=== PATIENT | female | born 1965 | race Caucasian/White ===

== ENCOUNTER → 2016-08-18 | Outpatient (CLI) | payer OTHER ==
--- NOTE | 2016-08-18 11:40 | MA ---
Screening Digital Mammogram With iCAD Analysis Clinical Indications: Routine screening. A maternal aunt was diagnosed with breast cancer in her 40s. Technique: Standard cephalocaudal projections are obtained. Digital breast tomosynthesis was performe d in the MLO projection with reconstruction at 1.0 mm slice thickness and composite MLO views reconst ructed. This examination is processed by the iCAD computer aided detection system. Comparison: June 2015, June, June 2012, July 2010. Breast density: Type B; Scattered fibroglandular densities. Findings: CAD was reviewed. No masses, suspicious calcifications or secondary signs of malignancy are seen. There has been no significant change in the appearance of either breast. Impression: Negative mammogram. BI-RADS 1. Recommendation: Routine mammographic screening in one year as long as [facility] Negative mammography should not preclude additional workup of a clinically suspicious finding. The patient's information is entered into a reminder system with a target due date for her next mammo gram.
== END ==
LOC: FIMAGING 08:14
DX: Z12.31 Encounter for screening mammogram for malignant neoplasm of breast (principal); Z80.3 Family history of malignant neoplasm of breast
CPT/HCPCS: G0202

== ENCOUNTER 2017-05-22 18:44 | Emergency (ER) | payer OTHER ==
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
[2017-05-22] MEDS ORDERED: OXYCODONE/APAP 5/325MG PREPACK#4 BTL TAKEHOME ONE (19:39)
[2017-05-22 19:54] VITALS: BP 113/66; PULSE 46; RESP 14; TEMP 97.7; O2SAT 94
== END 2017-05-22 19:54 | disposition home or self-care (01) ==
LOC: EDUNIT#
DX: S42.031A Displaced fracture of lateral end of right clavicle, initial encounter for closed fracture (principal); S09.90XA Unspecified injury of head, initial encounter; V19.9XXA Pedal cyclist (driver) (passenger) injured in unspecified traffic accident, initial encounter; Y92.69 Other specified industrial and construction area as the place of occurrence of the external cause
CPT/HCPCS: A4565

== ENCOUNTER → 2017-08-19 | Outpatient (CLI) | payer OTHER | LOC: FIMAGING 08:10 | PROVIDERS: ATTEND Internal Medicine | DX: Z12.31 Encounter for screening mammogram for malignant neoplasm of breast (principal) ==

== ENCOUNTER → 2018-12-01 | Outpatient (CLI) | payer OTHER | LOC: FIMAGING 08:09 | PROVIDERS: ATTEND Internal Medicine | DX: Z12.31 Encounter for screening mammogram for malignant neoplasm of breast (principal) ==

== ENCOUNTER 2018-12-21 08:45 | Observation (INO) | payer OTHER ==
[2018-12-21] MEDS ORDERED: ACETAMINOPHEN 500 MG TAB PO ONE (10:16)
[2018-12-21] MEDS ORDERED: GABAPENTIN 300 MG CAP PO ONE (10:16)
[2018-12-21] MEDS ORDERED: ceFAZolin 2 GM/DEXTROSE 100 ML IV ONE (10:16)
[2018-12-21] MEDS ORDERED: LR 1,000 ML IV ONE (10:17)
[2018-12-21] MEDS ORDERED: SURGIFLO MATRIX KIT WITH THROMBIN 8 ML TP ONE (10:21)
--- NOTE | 2018-12-21 10:25 | PDHPUP ---
History & Physical Update H&P update statement: This history and physical update is based on an assessment of the patient which was completed after admission or registration (within 24 hours), but prior to the surgery/procedure. H&P update: H&P reviewed & patient examined, no change in patient's condition since H&P completed
[2018-12-21] MEDS ORDERED: BACITRACIN 50,000 UNITS/10 ML SYR IRR ONE (10:35)
[2018-12-21] MEDS ORDERED: THROMBIN (BOVINE) 20,000 UNIT VIAL TP ONE (10:35)
[2018-12-21] MEDS ORDERED: CHLORHEXIDINE GLUC HIBICLENS 118 ML BTL TP ONE (10:35)
[2018-12-21] MEDS ORDERED: ROCURONIUM 50 MG/5 ML VIAL ONE (12:28)
[2018-12-21] MEDS ORDERED: PROPOFOL 200 MG/20 ML VIAL ONE (12:28)
[2018-12-21] MEDS ORDERED: LIDOCAINE 2% 5 ML SDV ONE (12:29)
[2018-12-21] MEDS ORDERED: MIDAZOLAM 2 MG/2 ML VIAL IVP ONE (12:59)
[2018-12-21] MEDS ORDERED: MIDAZOLAM 2 MG/2 ML VIAL ONE (12:59)
--- NOTE | 2018-12-21 12:59 | PDANEPAE ---
ANE History of Present Illness right arm radiculopathy ANE Past Medical History - Cardiovascular History Hx Hypertension: No Hx Arrhythmias: No Hx Chest Pain: No Hx Coronary Artery / Peripheral Vascular Disease: No Hx CHF / Valvular Disease: Yes Hx Palpitations: No Cardiovascular History Comment: VERY LOW RESTING HEART RATE. MITRAL VALVE PROLAPSE. HX PATENT FORAMEN OVALE W/ATRIAL SEPTAL ANEURYSM. PREOP VISIT SCHEDULED W/DR HILLIARD ON 12/13/18 - Pulmonary History Hx COPD: No Hx Asthma/Reactive Airway Disease: No Hx Recent Upper Respiratory Infection: No Hx Oxygen in Use at Home: No Hx Sleep Apnea: No Sleep Apnea Screening Result - Last Documented: Negative - Neurologic History Hx Cerebrovascular Accident: No Hx Seizures: No Hx Dementia: No Neurologic History Comment: MIGRAINES WHEN YOUNGER. IDIOPATHIC PARALYZED RIGHT VOCAL CORD - Endocrine History Hx Diabetes: No Hypothyroid: No Hyperthyroid: No Obesity: no - Renal History Hx Renal Disorders: No - Liver History Hx Hepatic Disorders: No - Neurological & Psychiatric Hx Hx Neurological and Psychiatric Disorders: No - Cancer History Hx Cancer: No - Congenital Disorder History Hx Congenital Disorders: No - GI History GERD: no Hx Gastrointestinal Disorders: No Gastrointestinal History Comment: COLONOSCOPY AT AGE 50 POLYP REMOVED. DIVERTICULA - Other Health History Other Health History: NEG - Chronic Pain History Chronic Pain: Yes (R SHOULDER TO SCAPULA & SPINE) - Surgical History Prior Surgeries: APPENDECTOMY. HYSTERECTOMY. CLAVICLE FX REPAIR. FATTY TUMOR BACK. SUBMUCOSAL FIBROID. PARTIAL VULVECTOMY- VAGINECTOMY PERINEAPLASTY. VULVAR LASER SURGERY. TONSILLECTOMY ANE Review of Systems Review of systems is: negative Review of Systems: - Exercise capacity Exercise capacity: >=4 METS METS (RN): 6 METS ANE Patient History - Allergies Allergies/Adverse Reactions: STREPTOCAINE Allergy (Unknown, Uncoded 12/09/18 13:03) Unknown - Home Medications Home medications: home medication list seen and reviewed Home Medications: NK [No Known Home Meds] 12/08/18 [Last Taken Unknown] - NPO status NPO Status: no food or drink >8 hours NPO Since - Liquids (Date): 12/21/18 NPO Since - Liquids (Time): 07:00 NPO Since - Solids (Date): 12/20/18 NPO Since - Solids (Time): 21:00 - Anes Hx Anes Hx: post operative nausea and vomiting - Smoking Hx Smoking Status: Never smoked - Family Anes Hx Family Hx Anesthesia Complications: NEG ANE Labs/Vital Signs - Vital Signs Vital Signs: reviewed preoperatively; see RN documention for details Blood Pressure: 154/94 Heart Rate: 64 Respiratory Rate: 12 O2 Sat (%): 98 Height: 167.64 cm Weight: 55.792 kg ANE Physical Exam - Airway Neck exam: FROM Mallampati Score: Class 2 Mouth exam: normal dental/mouth exam - Pulmonary Pulmonary: no respiratory distress, clear to auscultation - Cardiovascular Cardiovascular: regular rate and rhythym - ASA Status ASA Status: II ANE Anesthesia Plan Anesthesia Plan: general endotracheal anesthesia
[2018-12-21] MEDS ORDERED: fentaNYL 100 MCG/2 ML INJ ONE ×2 (13:12→14:45)
[2018-12-21] MEDS ORDERED: oxyCODONE IR 5 MG TAB PO PRN ×2 (13:15→13:58)
[2018-12-21] MEDS ORDERED: MAGNESIUM HYDROXIDE 30 ML UDCUP PO PRN (13:15)
[2018-12-21] MEDS ORDERED: POLYETHYLENE GLYCOL 3350 17 GM PKT PO PRN (13:15)
[2018-12-21] MEDS ORDERED: ONDANSETRON DISINTEGRATING 4 MG TAB PO PRN (13:15)
[2018-12-21] MEDS ORDERED: METHOCARBAMOL 750 MG TAB PO PRN (13:15)
[2018-12-21] MEDS ORDERED: BISACODYL 10 MG SUPP PR PRN (13:15)
[2018-12-21] MEDS ORDERED: diphenhydrAMINE 25 MG CAP PO PRN (13:15)
[2018-12-21] MEDS ORDERED: NS 1,000 ML IV SCH (13:15)
[2018-12-21] MEDS ORDERED: LACTULOSE 20 GM/30 ML UDCUP PO PRN (13:15)
[2018-12-21] MEDS ORDERED: ONDANSETRON 4 MG/2 ML VIAL IVP PRN ×2 (13:15→13:58)
[2018-12-21] MEDS ORDERED: PROPOFOL/EMULSION 500 MG/50 ML BOTTLE IV ONE (13:27)
[2018-12-21] MEDS ORDERED: DEXAMETHASONE 4 MG/ML VIAL IVP PRN (13:58)
[2018-12-21] MEDS ORDERED: PHENYLEPHRINE HCL 100 MCG/ML SYR IVP PRN (13:58)
[2018-12-21] MEDS ORDERED: NALOXONE HCL 0.4 MG/ML INJ IVP PRN (13:58)
[2018-12-21] MEDS ORDERED: ACETAMINOPHEN 500 MG TAB PO PRN (13:58)
[2018-12-21] MEDS ORDERED: LR 500 ML IV PRN (13:58)
[2018-12-21] MEDS ORDERED: HYDROCODONE/APAP 5/325 TAB PO PRN (13:58)
[2018-12-21] MEDS ORDERED: ALBUTEROL 3 ML DEYVIAL IH PRN (13:58)
[2018-12-21] MEDS ORDERED: HYDROmorphONE/DILAUDID 1 MG/ML INJ IVP PRN (13:58)
[2018-12-21] MEDS ORDERED: METOCLOPRAMIDE 10 MG/2 ML VIAL IVP PRN (13:58)
[2018-12-21] MEDS ORDERED: fentaNYL 100 MCG/2 ML INJ IVP PRN (13:58)
[2018-12-21] MEDS ORDERED: LABETALOL HCL 5 MG/ML 20 ML MDV IVP PRN (13:58)
[2018-12-21] MEDS ORDERED: PROMETHAZINE HCL 25 MG/ML INJ IVP PRN (13:58)
[2018-12-21] MEDS ORDERED: MEPERIDINE 25 MG/0.5 ML AMP IVP PRN (13:58)
[2018-12-21] MEDS ORDERED: DEXAMETHASONE 4 MG/ML VIAL ONE ×2 (14:20)
[2018-12-21] MEDS ORDERED: ONDANSETRON 4 MG/2 ML VIAL ONE (14:20)
[2018-12-21] MEDS ORDERED: METOCLOPRAMIDE 10 MG/2 ML VIAL ONE (14:20)
--- NOTE | 2018-12-21 14:33 | POSTOPPROG ---
Post Op Note Date of Operation: 12/21/18 Surgeon: Justin Sylvester Plumbing Inspector: Marisol Issa NP Anesthesiologist: Dr Godwin Anesthesia: GET(General Endotracheal) Pre-op Diagnosis: Cervical stenosis Procedure: ACDF C5-6 Inf/Abcess present in the surg proc area at time of surgery?: No Depth: Deep Incisional (Fascial) EBL: Minimal Total fluids administered: see anesthesia Complications: none Date of Surgery: 12/21/18 Post Op Day: 0 Assessment/Plan: Assessment: 53 yr old female s/p ACDF C5-6 Plan: -Admit ortho/neuro for obs -PT/OT/ST -Post op xrays -No collar needed Subjective: waking up in pacu Objective: waking up in pacu MAEx4 5/5 BUE Dressing CDI
[2018-12-21] MEDS ORDERED: METHOCARBAMOL 1,000 MG in NS 50 ML IVP ONE (14:42)
[2018-12-21] MEDS ORDERED: METHOCARBAMOL 750 MG TAB ONE (14:45)
--- NOTE | 2018-12-21 15:25 | GOP ---
[f rep st] OPERATIVE REPORT DATE OF OPERATION: 12/21/2018 SURGEON: Justin Sylvester MD ULTRASONIC SEAMING MACHINE OPERATOR: assistant attorney general, Marisol Issa NP ANESTHESIA: General. PREOPERATIVE DIAGNOSIS: 1. C5, C6 cervical spondylosis with right foraminal stenosis. 2. Right upper extremity radiculopathy with weakness. 3. Treatment refractory to nonoperative intervention. POSTOPERATIVE DIAGNOSIS: 1. C5, C6 cervical spondylosis with right foraminal stenosis. 2. Right upper extremity radiculopathy with weakness. 3. Treatment refractory to nonoperative intervention. PROCEDURE PERFORMED: 1. Anterior arthrodesis with approach to C5, C6. 2. C5-C6 diskectomy with bilateral foraminotomies, osteophytectomies, and interbody fusion using a 7 mm titanium coated PEEK cage filled with morselized autograft and allograft. 3. Anterior cervical fusion C5-C6 with a 17 mm Medtronic Zevo plate. 4. Use of intraoperative fluoroscopy, less than 1 hour physician time. 5. Use of neuromonitoring. 6. Use of operating microscope. FINDINGS: ESTIMATED BLOOD LOSS: 10 mL. INDICATIONS: The patient is a very pleasant woman who presented to my office with neck pain with rig ht upper extremity radiculopathy. She had evidence of a cervical disk herniation C5-6 with foraminal stenosis. After discussion of the risks, benefits, and alternatives, and after failing nonoperative intervention, we decided to proceed forth with the surgery as described above. DESCRIPTION OF PROCEDURE: Patient was brought to the operating theater and underwent general endotra cheal anesthesia without complications. She had Venodynes, DANETTE hose, appropriate lines placed by Michelle cazares. She was maintained supine on the operating table in slight extension. Using lateral fluoro scopy and a spinal needle, we then picked our entry point to the C5-6 level. This was marked as a tr ansverse incision on the right side of her neck. This area was then prepped and draped in the usual sterile surgical fashion. A time-out was completed per protocol and the patient received antibiotics within 1 hour of incision. The incision was taken down initially using a scalpel blade. Using monopolar, it was then taken down through subcutaneous tissues to the level of the platysma. The platysma was opened in cranial and c audal directions. A Weitlaner was then placed to maintain our exposure. We then traveled a plane me dial to the carotid sheath, lateral to the esophagus and trachea to reach the prevertebral fascia. José Miguel ramos placed a bayonetted needle in the disk space of C5, C6, and confirmed our level using lateral fluor oscopy. We then elevated the longus coli muscle from the anterior vertebral bodies of C5 and C6 and deep retractor was placed to maintain our exposure. The microscope was brought into field to assist with microscopic dissection and maintain illumination and magnification. We then used a combination of the 11 blade, curettes, and Kerrison punches to co mplete a C5-C6 diskectomy with bilateral foraminotomies. We reached out to the right-sided foramen, pulled out a very small disk fragment. We then prepared the cartilage endplates and measured the int erbody space. We placed a 7 mm titanium coated PEEK cage filled with morselized autograft and allogr aft in the C5-C6 disk space. We removed the Cecil pins, drilled down the anterior osteophytes, and secured a 17 mm Medtronic Zevo plate onto the vertebral bodies of C5 and C6. AP and lateral x-rays d emonstrated good placement of the hardware. The wound was irrigated copiously with bacitracin irrigation. We then closed the wound in multiple l arguello using Vicryl sutures for deep layers and Dermabond for skin. The patient's wounds were dressed sterilely. She was awakened, extubated, and taken to the recovery room in stable condition. There were no complications and no noted changes on neuromonitoring throughout the procedure. COMPLICATIONS: None. COMPLICATION: None. /[id number]/MODL
--- NOTE | 2018-12-21 16:24 | POSTANESTH ---
Post Anesthetic Evaluation Cardiovascular Status: Normal, Stable Respiratory Status: Normal, Stable Level of Consciousness/Mental Status: Can Participate in Eval Pain Control: Adequate, Prn Tx Ordered Nausea/Vomiting Control: Adequate, Prn Tx Ordered Complications Possibly Related to Anesthesia: None Noted
[2018-12-21] MEDS: ceFAZolin 2 GM/DEXTROSE 100 ML IV SCH (18:23)
[2018-12-21] MEDS: FAMOTIDINE 20 MG TAB PO SCH (20:13)
[2018-12-21] MEDS: ACETAMINOPHEN 500 MG TAB PO SCH (20:13)
[2018-12-21] MEDS: SENNOSIDES/DOCUSATE SODIUM TAB PO SCH (20:13)
[2018-12-22] MEDS: ceFAZolin 2 GM/DEXTROSE 100 ML IV SCH (02:36)
[2018-12-22] MEDS: ACETAMINOPHEN 500 MG TAB PO SCH (02:36)
[2018-12-22 05:55] LABS: PLATELET COUNT 194 10^3/uL (150-400)
--- NOTE | 2018-12-22 07:24 | NEUSURGPN ---
Date of Surgery: 12/21/18 Post Op Day: 1 Assessment/Plan: Assessment: 53 yr old female s/p ACDF C5-6 POD #1 Plan: -s/p ACDF C5/6: doing well this am-taking Tylenol for pain with occasional oxy/ robaxin -continue with ortho/neuro for observation-plan for dc later today -pt doing well, walking in [place]. Pt ready for dc -continue with PT/OT/ST-if clears pt then can dc home -Post op xrays look good -warning signs given -call with any questions or concerns -pt understands and agrees -no collar needed -d/w Dr Sylvester Subjective: Awake and alert. NAD. Eating/drinking and voiding. Ambulating well. No rinaldi/cp /sob/abd or gu complaints. Objective: AAO x 3, PERRLA/EOMI no droop CN 2-12 grossly intact +lt touch 5/5 BUE/BLE = CDI Neuro Check Frequency: per routine Urinary Catheter in Place: No - Physician Discussed Patient with : [facility]in[facility] Neurosurgery Physical Exam - Vitals, I&O, Labs I and O 12/21/18 12/22/18 12/23/18 05:59 05:59 05:59 Intake Total 2380 Output Total 4625 Balance -2245 Weight 55.792 kg Intake: Oral (ml) 1050 IV Intake (ml) 1125 IV Infused (ml) 205 ceFAZolin 2 GM/DEXTROSE 100 100 ml @ 200 mls/hr IV ONCALL ONE Rx#:[id number] ceFAZolin 2 GM/DEXTROSE 105 100 ml @ 200 mls/hr IV Q8H [facility] Rx#:[id number] Output: Urine (ml) 4600 Toilet 4600 Estimated Blood Loss (ml) 25 Other: Number of Voids Toilet 1 Vital Signs Temp Pulse Resp BP Pulse Ox 36.6 C 40 L 16 104/59 L 92 12/22/18 03:41 12/22/18 03:41 12/22/18 03:41 12/22/18 03:41 12/22/18 03:41 Laboratory Results 12/22/18 05:07 12/22/18 05:07 ICD10 Worksheet Patient Problems: Problems Problem Status Onset Appendicitis Active
[2018-12-22 07:45] VITALS: BP 124/84
[2018-12-22] MEDS: FAMOTIDINE 20 MG TAB PO SCH (09:48)
[2018-12-22] MEDS: SENNOSIDES/DOCUSATE SODIUM TAB PO SCH (09:48)
--- NOTE | 2018-12-22 11:32 | ASMTCMCOM ---
CM Note CM Note Notes: Pt had planned spinal surgery, resides with spouse. 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 Pt medically stable for d/c. Date Signed: 12/22/2018 11:31 AM Electronically Signed By:FELIX Aguilar
[2018-12-24] MEDS ORDERED: ENOXAPARIN 40 MG/0.4 ML SYR SC SCH (09:00)
== END 2018-12-22 10:08 | disposition home or self-care (01) ==
LOC: F3N 10:08
PROVIDERS: ADMIT Neurological Surgery; ATTEND Neurological Surgery
PROC: 8E0WXBZ Computer Assisted Procedure of Trunk Region (ICD-10-PCS; principal; 2018-12-21 12:00)
PROC: 0RG10A0 Fusion of Cervical Vertebral Joint with Interbody Fusion Device, Anterior Approach, Anterior Column, Open Approach (ICD-10-PCS; principal; 2018-12-21 12:00)
PROC: 00NW0ZZ Release Cervical Spinal Cord, Open Approach (ICD-10-PCS; principal; 2018-12-21 12:00)
PROC: 4A10X4G Monitoring of Central Nervous Electrical Activity, Intraoperative, External Approach (ICD-10-PCS; principal; 2018-12-21 12:00)
PROC: BR101ZZ Fluoroscopy of Cervical Spine using Low Osmolar Contrast (ICD-10-PCS; principal; 2018-12-21 12:00)
DX: M48.02 Spinal stenosis, cervical region (principal); M47.22 Other spondylosis with radiculopathy, cervical region
CPT/HCPCS: 22551; 72040; 76000; 92610; 97161; 97165; G0378; C1713; J0690; J1100; J2250; J2405; J2704; J2765; J2800; J3010